=== PATIENT | male | born 1965 | race Caucasian/White ===

== ENCOUNTER 2021-11-23 18:57 | Emergency (ER) | payer OTHER ==
[~2021-11-23] VITALS: Ht 167.6 cm; Wt 96.2 kg
[~2021-11-23 18:57] MED LIST: ASPI81CH PO; CRUTCH4 USE; HYDACE5 PO; IBUPROFEN200 MG PO; NAPR220 PO; OXYACE5T PO; RXHYDACE PO
[2021-11-23 19:29] LABS: BASOPHILS ABSOLUTE AUTO 0.04 K/mm3 (0.00-0.23); BASOPHILS PERCENT AUTO 1 % (0-2); EOSINOPHILS ABSOLUTE AUTO 0.24 K/mm3 (0.00-0.68); EOSINOPHILS PERCENT AUTO 3 % (0-6); Hematocrit 45.4 % (37.0-53.0); Hemoglobin 15.7 g/dL (13.5-17.5); IMMATURE GRAN ABSOLUTE AUTO 0.05 K/mm3 (0.00-0.10); IMMATURE GRAN PERCENT AUTO 1 % (0-1); LYMPHOCYTES ABSOLUTE AUTO 2.84 K/mm3 (0.84-5.20); LYMPHOCYTES PERCENT AUTO 40 % (21-46); MONOCYTES ABSOLUTE AUTO 0.64 K/mm3 (0.16-1.47); MONOCYTES PERCENT AUTO 9 % (4-13); Mean Corpuscular HGB 30.5 pg (26.0-34.0); Mean Corpuscular HGB Conc 34.6 g/dL (31.5-36.5); Mean Corpuscular Volume 88 fL (80-100); Mean Platelet Volume 10.6 fL (9.1-12.4); NEUTROPHILS ABSOLUTE AUTO 3.28 K/mm3 (1.96-9.15); NEUTROPHILS PERCENT AUTO 46 % (41-73); Platelet Count 157 K/mm3 (150-400); RDW Coefficient Variation 11.5 % (11.7-14.2); RDW Standard Deviation 36.9 fL (35.1-46.3); Red Blood Cell Count 5.14 M/mm3 (4.30-5.90); White Blood Cell Count 7.09 K/mm3 (4.00-11.30)
[2021-11-23 19:50] LABS: Alanine Aminotransfer (ALT/SGP 46 U/L (12-78); Albumin, Blood 3.8 g/dL (3.4-5.0); Alk Phos 107 U/L (50-136); Anion Gap 5 mmol/L (6-16); Aspartate Aminotrans (AST/SGOT 14 U/L (12-37); Bilirubin, Total 0.4 mg/dL (0.1-1.0); Blood Urea Nitrogen 16 mg/dL (8-24); Bun/Creatinine Ratio 20.4 (12.0-20.0); CO2, Blood 29 mmol/L (21-32); Calcium, Blood 9.5 mg/dL (8.5-10.1); Chloride, Blood 101 mmol/L (98-108); Creatinine, Blood 0.78 mg/dL (0.60-1.20); Globulin, Blood 3.8 g/dL (2.2-4.0); Glomerular Filtration Rate >60 (60-); Glucose, Blood 396 mg/dL (70-99); Potassium, Blood 4.1 mmol/L (3.5-5.5); Sodium, Blood 135 mmol/L (136-145); Total Protein, Blood 7.6 g/dL (6.4-8.2)
[2021-11-23] MEDS ORDERED: Prinivil10 MG PO (21:34)
[2021-11-23] MEDS ORDERED: AMOCLA875 PO (21:55)
== END 2021-11-23 22:22 | disposition home or self-care (01) ==
LOC: ER 18:57
PROVIDERS: Student in an Organized Health Care Education/Training Program
DX: K57.32 Diverticulitis of large intestine without perforation or abscess without bleeding (principal); F17.220 Nicotine dependence, chewing tobacco, uncomplicated; Z79.82 Long term (current) use of aspirin; Z79.899 Other long term (current) drug therapy
CPT/HCPCS: 36415; 74177; 80053; 85025; 99284-25; A9270; Q9967

== ENCOUNTER 2022-02-22 13:18 | Emergency (ER) | payer OTHER ==
[~2022-02-22] VITALS: Ht 167.6 cm; Wt 90.7 kg
[~2022-02-22 13:18] MED LIST changes: +AMOCLA875 PO; +Prinivil10 MG PO
== END 2022-02-22 15:37 | disposition home or self-care (01) ==
LOC: ER 13:18
DX: S60.222A Contusion of left hand, initial encounter (principal); I10 Essential (primary) hypertension; F17.220 Nicotine dependence, chewing tobacco, uncomplicated; Z79.82 Long term (current) use of aspirin; Z79.899 Other long term (current) drug therapy; V86.99XA Unspecified occupant of other special all-terrain or other off-road motor vehicle injured in nontraffic accident, initial encounter
CPT/HCPCS: 73130

== ENCOUNTER 2022-07-26 06:05 | Day surgery (SDC) | payer OTHER ==
[~2022-07-26] VITALS: Ht 170.2 cm; Wt 90.4 kg
[~2022-07-26 06:05] MED LIST changes: +ASCO500 PO; +CENTRUM SILVER1 EAC2 PO; +MELA3 PO; +METAMUCIL POWD798 GM PO; +METF500 PO; +VITAMIN D310 MC4 PO; +ZINC15 PO
--- NOTE | 2022-07-26 11:10 | NUR ---
PT AWAKE FROM PACU, VSS, ABDOMINAL DRESSING D&I PO FLUIDA AND CRACKERS GIVEN, MONSTER WELL, AT BEDSIDE. REVIEWED D/C INSTRUCTS EXTENSIVELY. 1055 DC HOME, TO CAR VIA W/C. CARE TURNED OVER TO
== END 2022-07-26 23:26 | disposition home or self-care (01) ==
LOC: ORSCMMR 06:05 → ORD 07:30 → ORSCMMR 23:26
PROVIDERS: Surgery
PROC: 0WUF0JZ Supplement Abdominal Wall with Synthetic Substitute, Open Approach (ICD-10-PCS; principal; 2022-07-26 07:30)
DX: K42.9 Umbilical hernia without obstruction or gangrene (principal); I10 Essential (primary) hypertension; E11.9 Type 2 diabetes mellitus without complications; I25.10 Atherosclerotic heart disease of native coronary artery without angina pectoris; E78.5 Hyperlipidemia, unspecified; I25.2 Old myocardial infarction; Z79.84 Long term (current) use of oral hypoglycemic drugs; Z79.899 Other long term (current) drug therapy; Z79.82 Long term (current) use of aspirin
CPT/HCPCS: 82947; A9270; C1781; J0690; J1100; J1885; J2250; J2405; J2704; J2795; J3010; J7120

== ENCOUNTER 2023-08-12 10:05 | Day surgery (SDC) | payer OTHER ==
[~2023-08-12] VITALS: Ht 170.2 cm; Wt 90.5 kg
[2023-08-12] MEDS ORDERED: MELO7.5 (10:47)
[2023-08-12] MEDS ORDERED: MELO7.5 PO (10:49)
--- NOTE | 2023-08-12 13:21 | NUR ---
08/12/23 1321 Cherry Dominguez 1MG EPI ADDED TO FIRST BAG OF LR PER ORDERS FOR IRRIGATION AT [facility] BY DR MCGEE.
[2023-08-12 14:34] VITALS: BP 157/71
--- NOTE | 2023-08-12 15:38 | NUR ---
08/12/23 1538 Fernanda Villa PT STATED PAIN 2/10 AND TOLERABLE WITH ELEVATION AND POLAR PACK. PT DENIED NEEDING ORAL PAIN MEDICATION. PT GIVEN IV ZOFRAN 4MG FOR NAUSEA, PT STATED NAUSEA "MOSTLY" RESOVLED, DECLINED ADDITIONAL NAUSEA MEDICATION. VSS. PT ORIGINALLY GIVEN RX FOR NORCO, HOWEVER, PT STATES NORCO WAS AN ALLERGY D/T ITCHINESS. PT WAITED FOR MD TO WRITE A RX FOR PERCOCET FOR PAIN MANAGEMENT AT HOME. AT BEDSIDE FOR DISCHARGE TEACHING INSTRUCTIONS. ALL QUESTIONS ADDRESSED. PT STATED PAIN 2/10 AND EXPRESSED READINESS TO GO HOME.
== END 2023-08-12 14:20 | disposition home or self-care (01) ==
LOC: ORSCSDS 10:05
PROVIDERS: Orthopaedic Surgery
PROC: 0SQC4ZZ Repair Right Knee Joint, Percutaneous Endoscopic Approach (ICD-10-PCS; principal; 2023-08-12 11:30)
DX: S83.231A Complex tear of medial meniscus, current injury, right knee, initial encounter (principal); M94.261 Chondromalacia, right knee; I10 Essential (primary) hypertension; E11.9 Type 2 diabetes mellitus without complications; K21.9 Gastro-esophageal reflux disease without esophagitis; Z79.82 Long term (current) use of aspirin; Z79.899 Other long term (current) drug therapy
CPT/HCPCS: 82947; A9270; J0171; J0690; J1100; J2250; J2405; J2704; J2795; J3010; J7120

== ENCOUNTER 2024-02-12 12:43 | Emergency (ER) | payer OTHER ==
[~2024-02-12] VITALS: Ht 167.6 cm; Wt 86.2 kg
[~2024-02-12 12:43] MED LIST changes: +MELO7.5; +MELO7.5 PO
[2024-02-12 12:48] VITALS: BP 146/91
[2024-02-12] MEDS ORDERED: OxyCODONE 5 mg/Acetamin 325 mg TABLET PO ONE (13:15)
[2024-02-12] MEDS ORDERED: Percocet 5-3251 EACH PO (13:25)
[2024-02-12] MEDS ORDERED: DiphenhydrAMINE HCL 25 MG Cap PO ONE (13:25)
== END 2024-02-12 13:45 | disposition home or self-care (01) ==
LOC: ER 12:43
DX: S43.101A Unspecified dislocation of right acromioclavicular joint, initial encounter (principal); S00.431A Contusion of right ear, initial encounter; R07.81 Pleurodynia; I10 Essential (primary) hypertension; V86.55XA Driver of 3- or 4- wheeled all-terrain vehicle (ATV) injured in nontraffic accident, initial encounter; Z79.899 Other long term (current) drug therapy; Z79.82 Long term (current) use of aspirin; Z79.84 Long term (current) use of oral hypoglycemic drugs; Z88.5 Allergy status to narcotic agent
CPT/HCPCS: 71046; 73030; 99283-25; A9270

== ENCOUNTER 2024-03-20 08:12 | Day surgery (SDC) | payer OTHER ==
[2024-03-20] VITALS (16 sets, daily range): BP systolic 115–164; BP diastolic 70–103
[~2024-03-20 08:12] MED LIST changes: +Lactated Ringer's 1,000 ML IV SCH; +PRAVASTATIN SOD20 MG PO; +Percocet 5-3251 EACH PO
--- NOTE | 2024-03-20 08:36 | NUR ---
History, Chart, Medications and Allergies reviewed before start of procedure. Patient confirms NPO status and agrees with scheduled surgery. Patient states colon prep results clear. Lungs clear T/O to Auscultation. Patient States Post-Procedure ride home has been arranged. Pre-Op teaching done. Pt verbalizes understanding.
[2024-03-20] MEDS ORDERED: propofoL 40 ML IV ONE (09:00)
--- NOTE | 2024-03-20 09:22 | NUR ---
03/20/24 0922 Emerald Coles HISTORY, CHART, MEDICATIONS AND ALLERGIES REVIEWED BEFORE START OF PROCEDURE. PATIENT CONFIRMS NPO STATUS AND AGREES WITH SCHEDULED PROCEDURE. 3-LEAD EKG REVIEWED WITH PHYSICIAN PRIOR TO START OF PROCEDURE. MONITOR INTACT WITH CONTINUOUS PULSE OXIMETRY,CAPNOGRAPHY, 3-LEAD EKG, INTERMITTENT BP. SUPPLEMENTAL O2 TO BE TITRATED THROUGHOUT PROCEDURE TO MAINTAIN O2 SATURATION ABOVE 90%. PATIENT DETERMINED TO BE ASA APPROPRIATE FOR PROPOFOL SEDATION PRIOR TO START OF PROCEDURE BY .
--- NOTE | 2024-03-20 10:04 | NUR ---
Patient up to Ambulate independently. Gait steady. Discharge instructions reviewed with patient. Patient verbalizes understanding. Copy given to patient to take home, [facility]. Patient States Post-Procedure ride home has been arranged. Discharged via wheelchair to private car for ride home.
== END 2024-03-20 10:04 | disposition home or self-care (01) ==
LOC: ORSCMMR 08:12 → ORD 09:00 → ORSCMMR 09:00
PROVIDERS: Internal Medicine Gastroenterology
PROC: 0DBM8ZX Excision of Descending Colon, Via Natural or Artificial Opening Endoscopic, Diagnostic (ICD-10-PCS; principal; 2024-03-20 09:00)
PROC: 0DBN8ZX Excision of Sigmoid Colon, Via Natural or Artificial Opening Endoscopic, Diagnostic (ICD-10-PCS; principal; 2024-03-20 09:00)
DX: Z12.11 Encounter for screening for malignant neoplasm of colon (principal); D12.4 Benign neoplasm of descending colon; K63.5 Polyp of colon; I10 Essential (primary) hypertension; E11.9 Type 2 diabetes mellitus without complications; E78.00 Pure hypercholesterolemia, unspecified; Z79.84 Long term (current) use of oral hypoglycemic drugs; Z79.899 Other long term (current) drug therapy
CPT/HCPCS: 82947; 88305; J2704; J7120